=== PATIENT | male | born 1995 | race Two or more races ===

== ENCOUNTER → 2022-11-02 | Emergency (ER) | payer OTHER ==
[~2022-11-02] VITALS: Ht 167.6 cm; Wt 67.1 kg
[~2022-11-02] MED LIST: HYDR-3980 PO; IBUP-1955 PO
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
--- NOTE | 2022-11-02 16:33 | NUR ---
Patient discharged to home in stable condition. Written and verbal after care instructions given. Patient verbalizes understanding of instruction.
[2022-11-02 16:34] VITALS: BP 118/69
== END | disposition home or self-care (01) ==
LOC: ER 13:43
DX: S42.031A Displaced fracture of lateral end of right clavicle, initial encounter for closed fracture (principal); Z79.899 Other long term (current) drug therapy; Z60.2 Problems related to living alone; Z88.1 Allergy status to other antibiotic agents; Z88.0 Allergy status to penicillin; Y04.0XXA Assault by unarmed brawl or fight, initial encounter; Y93.89 Activity, other specified; Y92.89 Other specified places as the place of occurrence of the external cause; Y99.8 Other external cause status
CPT/HCPCS: 73000-TC; 73030-TC